=== PATIENT | female | born 1950 | race Caucasian/White ===

== ENCOUNTER 2021-07-12 01:17 | Day surgery (SDC) | payer MEDICARE, SELFPAY ==
[2021-07-04 08:54] VITALS: BMI 33.3
[2021-07-12 07:39] VITALS: BP 160/84; PULSE 74; RESP 20; TEMP 36.1; O2SAT 100; BMI 32.7
--- NOTE | 2021-07-12 07:49 | WPDANESEPPF ---
Anes - Initial Pre Proc Eval Procedure: Operation Date: 07/12/21 08:30 Proposed Procedures p Screening Colonoscopy - Ryan Barreto MD Date/Time: 07/12/21 07:49 Surgeon: Ryan Barreto MD Pre Op Diagnosis: neoplasm screening Patient Data Age: 71 Gender: F Height: 1.65 m Weight: 89.3 kg Last Vital Signs Temp 36.1 C L 07/12/21 07:39 Pulse 74 07/12/21 07:39 Resp 20 07/12/21 07:39 BP 160/84 H 07/12/21 07:39 Pulse Ox 100 07/12/21 07:39 Allergies Allergy/AdvReac Type Severity Reaction Status Date / Time No Known Allergies Verified 07/12/21 07:38 Home Medications Medication Instructions Recorded Confirmed Type raloxifene 60 mg tablet 60 mg PO DAILY 07/18/20 07/04/21 History levothyroxine 88 mcg tablet 88 mcg PO DAILY #90 tablet 02/28/21 07/04/21 Rx amlodipine 2.5 mg tablet 2.5 mg PO DAILY #30 tablet 05/28/21 07/04/21 Rx losartan 100 mg tablet 100 mg PO DAILY #90 tablet 06/18/21 07/04/21 Rx Patient hx anesthesia problems: none Family hx anesthesia problems: none PMFSH Past Medical History Medical History (Updated 07/12/21 @ 07:49 by Gareth Hankins MD) Obesity Family History Family History Mother Patient's mother is in good health Father Patient's father is Social History Social History Social History: Smoking status: Never smoker Second hand tobacco smoke exposure: No Alcohol intake: current Alcohol use details: occasionally Substance use: never Substance use type: does not use Living arrangements: with family Gender identity (if verbalized by the patient): Female Sexual Orientation (if Verbalized by the Patient): Straight or Heterosexual Anes - Eval Final PreProcedure Day of Procedure 07/12/21 07:49 Patient weight: obese Heart: regular rate and rhythm Lungs: clear to auscultation Airway: Mallampati scale class II Neurological: alert and oriented Last oral intake: >/= 8 hours ASA classification: III Emergent: no Anesthetic plan: proceed Anesthesia type and monitoring: general GIVS and standard monitoring Informed Consent: The patient's anesthetic plan and its attendant risks and benefits were discussed with the patient/family/POA. Questions were solicited and answers provided to the satisfaction of the patient/family/POA.
[2021-07-12] MEDS: LACTATED RINGERS 1,000 ML 150 ML IV CONT (07:58)
--- NOTE | 2021-07-12 08:19 | WPDGICN ---
Assessment and Plan Assessment and plan (1) Encounter for screening colonoscopy: Code(s): Z12.11 - Encounter for screening for malignant neoplasm of colon Status: Acute Assessment and Plan: Patient presents for neoplasia screening colonoscopy. Further recommendations will be given after endoscopy. GI Consult Note Consult date/time: 07/12/21 08:19 HPI: Vicky Spears is a 71 year old female Presents for colonoscopy. Patient desires neoplasia screening. Her patient reports that her current weight appetite bowel movements normal. She denies any blood in her stools. She has no abdominal pain. Her last colonoscopy was in 2009. Review of Systems Review of Systems: All systems reviewed & are unremarkable except as noted in HPI and below PMFSH Past Medical History Medical History (Updated 07/12/21 @ 08:21 by Ryan Barreto MD) Obesity Family History Family History Mother Patient's mother is in good health Father Patient's father is Social History Social History Social History: Smoking status: Never smoker Second hand tobacco smoke exposure: No Alcohol intake: current Alcohol use details: occasionally Substance use: never Substance use type: does not use Living arrangements: with family Gender identity (if verbalized by the patient): Female Sexual Orientation (if Verbalized by the Patient): Straight or Heterosexual Meds Home Medications and Allergies Home Medications Medication Instructions Recorded Confirmed Type raloxifene 60 mg tablet 60 mg PO DAILY 07/18/20 07/04/21 History levothyroxine 88 mcg tablet 88 mcg PO DAILY #90 tablet 02/28/21 07/04/21 Rx amlodipine 2.5 mg tablet 2.5 mg PO DAILY #30 tablet 05/28/21 07/04/21 Rx losartan 100 mg tablet 100 mg PO DAILY #90 tablet 06/18/21 07/04/21 Rx Allergies Allergy/AdvReac Type Severity Reaction Status Date / Time No Known Allergies Verified 07/12/21 07:38 Vital Signs Vital Signs - 24 hr 07/12/21 07:39 Temperature 97 F L Pulse Rate 74 Respiratory Rate 20 Blood Pressure 160/84 H Pulse Oximetry 100 Exam Narrative: Physical exam reveals patient to be alert. Vital signs stable. HEENT exam is unremarkable. Patient is anicteric. Lungs are clear to auscultation and percussion. Heart is without murmur or extra sounds. Abdominal exam bowel sounds are present soft nontender with no organomegaly. Digital external rectal exam is normal.
[2021-07-12 08:53] VITALS: BP 121/72; PULSE 60; RESP 15; O2SAT 97
[2021-07-12 09:03] VITALS: BP 136/77; PULSE 56; RESP 16; O2SAT 99
[2021-07-12 09:13] VITALS: BP 147/89; PULSE 61; RESP 14; O2SAT 100
== END 2021-07-12 09:43 | disposition home or self-care (01) ==
PROVIDERS: PCP Family Medicine; Visit Provider Internal Medicine Gastroenterology
PROC: 0DJD8ZZ Inspection of Lower Intestinal Tract, Via Natural or Artificial Opening Endoscopic (ICD-10-PCS; CPT 45378; principal; 2021-07-12 08:30)
DX: Z12.11 Encounter for screening for malignant neoplasm of colon (principal); E66.9 Obesity, unspecified; K64.8 Other hemorrhoids; K57.30 Diverticulosis of large intestine without perforation or abscess without bleeding
CPT/HCPCS: G0121; J2704; J7120

== ENCOUNTER 2022-02-20 15:40 | Outpatient (CLI) | payer MEDICARE, SELFPAY ==
--- NOTE | ~2022-02-20 | DEXA_ITS ---
Bone Density Report Name: JOSSELIN DOS SANTOS Age: 71 Sex: Female Ethnicity: White Date of : 1950 Indication: postmenopausal; screening for osteoporosis; height loss; Referring Provider: DERIK AGUILERA Study: Bone densitometry was performed. Exam Date: February 20, 2022 Accession number: [id number] Bone Density: Region BMD T-score Z-score Classification AP Spine(L1-L4) 0.891 -1.4 0.7 Osteopenia Femoral Neck (Left) 0.792 -0.5 1.3 Normal Total Hip (Left) 0.915 -0.2 1.3 Normal Femoral Neck (Right) 0.693 -1.4 0.4 Osteopenia Total Hip (Right) 0.857 -0.7 0.9 Normal Total Hip Mean 0.886 -0.5 1.1 Normal World Health Organization criteria for BMD impression classify patients as: Normal (T-score at or above -1.0), Osteopenia (T-score between -1.0 and -2.5), or Osteoporosis (T-score at or below -2.5). 10-year Fracture Risk(1): Major Osteoporotic Fracture 9.2% Hip Fracture 1.3% Reported Risk Factors: [place] (), Neck BMD=0.693, BMI=34.8 (1) FRAX(R) Version 3.08. Fracture probability calculated for an untreated patient. Fracture probability may be lower if the patient has received treatment. Previous Exams: Region Exam Age BMD T-score BMD Change BMD Change Date g/cm2 vs Baseline vs Previous AP Spine (L1-L4) 02/20/2022 71 0.891 -1.4 -0.158 (-15.0% -0.080 (-8.2%) 09/12/2019 69 0.971 -0.7 -0.078 (-7.4%) 0.046 (5.0%)# 10/09/2016 66 0.925 -1.1 -0.124 (-11.8% -0.124 (-11.8% 05/03/2013 63 1.049 0.0 Total Hip(Left) 02/20/2022 71 0.915 -0.2 -0.203 (-18.2% -0.049 (-5.1%) 09/12/2019 69 0.964 0.2 -0.154 (-13.8% -0.036 (-3.6%) 10/09/2016 66 1.000 0.5 -0.118 (-10.6% -0.118 (-10.6% 05/03/2013 63 1.118 1.4 Total Hip(Right) 02/20/2022 71 0.857 -0.7 -0.201 (-19.0% -0.066 (-7.1%) 09/12/2019 69 0.923 -0.2 -0.135 (-12.7% -0.025 (-2.6%) 10/09/2016 66 0.948 0.0 -0.110 (-10.4% -0.110 (-10.4% 05/03/2013 63 1.058 1.0 *Denotes significance at 95% confidence level, LSC for AP Spine = 0.022 g/cm2, LSC for Total Hip = 0.027 g/cm2 # Denotes dissimilar scan types or analysis methods Clinical Information Provided by Patient: Has used the following medications: Vitamin D Patient maximum height was 65 Menopause Age: 56 No regular weight bearing exercise Onset of menses at age 14 Number of children 3 Impression: The patient has low bone mass, based on the Total
== END 2022-02-20 15:41 | disposition home or self-care (01) ==
LOC: ANHIMG 15:41
PROVIDERS: PCP Family Medicine; Visit Provider Obstetrics & Gynecology Gynecology
DX: Z78.0 Asymptomatic menopausal state (principal); M85.88 Other specified disorders of bone density and structure, other site; M85.851 Other specified disorders of bone density and structure, right thigh
CPT/HCPCS: 77080

== ENCOUNTER 2022-08-18 18:49 | Emergency (ER) | payer MEDICARE, SELFPAY ==
[2022-08-18] VITALS (21 sets, daily range): BP systolic 128–161; BP diastolic 62–118; PULSE 78–88; RESP 14–20; TEMP 36.2; O2SAT 84–100
--- NOTE | ~2022-08-18 | XR_ITS ---
EXAM: XR shoulder LT min 2V DATE: 08/18/2022 21:36 HISTORY: POST REDUCTION . COMPARISON: Same date at 7:16 PM. FINDINGS/IMPRESSION: Interval reduction of the left shoulder. Superior head migration as can be seen with rotator cuff tear. Reviewed, dictated and finalized at location K.
--- NOTE | ~2022-08-18 | XR_ITS ---
EXAM: XR shoulder LT min 2V DATE: 08/18/2022 19:19 HISTORY: FALL DOWN STEPS . COMPARISON: None available. FINDINGS: Normal mineralization. Anterior and slightly inferior dislocation of the left humeral head . No fracture.. No lytic or blastic lesion. Moderate AC joint hypertrophy. No erosion or periosteal c hange. Soft tissues within normal limits. IMPRESSION: Anterior left glenohumeral dislocation. Reviewed, dictated and finalized at location K.
--- NOTE | 2022-08-18 19:49 | ED.FALL ---
HPI - Fall General Chief Complaint: Fall Stated Complaint: FALL-SHOULDER INJURY Time Seen by Provider: 08/18/22 19:04 History of Present Illness HPI Narrative: 72-year-old male presents the emergency room for evaluation of left shoulder pain. Patient states that she was walking upstairs, when she tripped and fell landing directly on her left shoulder. Patient states following the injury she was unable to move her shoulder. Denies any other injuries. Related Data Home Medications Medication Instructions Recorded Confirmed raloxifene 60 mg tablet (Evista) 60 mg PO DAILY 07/18/20 07/31/22 Allergies Allergy/AdvReac Type Severity Reaction Status Date / Time No Known Allergies Allergy Unverified 08/18/22 19:05 Review of Systems Review of Systems: CONSTITUTIONAL: Denies fever, chills, or sweats. EYES: Denies visual changes, redness, or discharge. ENT: Denies rhinorrhea, congestion, sore throat, or otalgia. CARDIOVASCULAR: Denies chest pain, palpitations, or edema. RESPIRATORY: Denies cough or dyspnea. GASTROINTESTINAL: Denies abdominal pain, nausea, vomiting, or diarrhea. GENITOURINARY: Denies dysuria or hematuria. SKIN: Denies rash or itching. MUSCULOSKELETAL: Reports left shoulder pain NEUROLOGIC: Denies headache, numbness, dizziness, or weakness. PSYCHIATRIC: Denies anxiety or depression. PMFSH Past Medical History Medical History Obesity Family History Family History Mother Patient's mother is in good health Father Patient's father is Social History Social History Social History: Smoking status: Never smoker Second hand tobacco smoke exposure: No Alcohol intake: current Alcohol use details: occasionally Substance use: never Substance use type: does not use Gender identity (if verbalized by the patient): Female Sexual Orientation (if Verbalized by the Patient): Straight or Heterosexual Spiritual care concerns: No Exam Narrative: GENERAL: Well-appearing, well-nourished, no physical limitations, and in no acute distress. HEAD: Normocephalic, atraumatic. EYES: Conjunctivae normal, PERRLA and EOMI. CHEST: Clear to auscultation. No respiratory distress. No wheezes rales or rhonchi. No tenderness. HEART: Regular rate and rhythm. No murmur heard. Normal peripheral pulses. EXTREMITIES: lt shoulder: +TTP to anterior aspect, no obvious bony abnormality, neurovascular is intact distally, unable to assess range of motion due to pain. SKIN: Warm, dry, no rash. No noted wounds NEURO: No focal deficits. Alert and oriented x3. MAEW. CN's II-XI intact bilaterally, normal gait PSYCH: Cooperative. Normal mood and affect. Course Course Emergency Course: 2129: Patient placed on monitoring manager and CO [address] Patient will this prepared for conscious sedation. Dr. Wood at the bedside to etomidate. Shoulder dislocation was successfully reduced and repeat films were obtained. Shoulder immobilizer was applied to patient. Vital Signs Vital signs: Vital Signs Temperature 36.2 C L 08/18/22 18:50 Pulse Rate 78 08/18/22 18:50 Respiratory Rate 18 08/18/22 18:50 Blood Pressure 142/118 H 08/18/22 18:50 Pulse Oximetry 100 08/18/22 18:50 Temperature 36.2 C L 08/18/22 18:50 Pulse Rate 78 08/18/22 18:50 Respiratory Rate 18 08/18/22 18:50 Blood Pressure 142/118 H 08/18/22 18:50 Pulse Oximetry 100 08/18/22 18:50 Discharge Plan Discharge Clinical Impression: Anterior dislocation of left shoulder Patient Disposition: Home, Self-Care Condition: Stable Instructions: Antibiotic Form, Shoulder Dislocation (ED), Closed Reduction (ED), Shoulder Immobilizer (ED) Prescriptions: New hydrocodone-acetaminophen 5-325 mg tablet 1 tablet PO Q8H PRN (Reason: pain) Qty: 20
[2022-08-18] MEDS: HYDROmorphone HCL INJ (*CRX) 1 MG/ML SYR IV PUSH (20:13)
[2022-08-18] MEDS: ONDANSETRON INJ 4 MG/2 ML VIAL IV PUSH (20:13)
[2022-08-18] MEDS: SODIUM CHLORIDE 0.9% IV 1,000 ML 999 ML (21:15)
[2022-08-18] MEDS: ETOMIDATE 20 MG/10 ML AMPUL 45 MG IV PUSH (21:20)
== END 2022-08-18 23:20 | disposition home or self-care (01) ==
PROVIDERS: Emergency Provider Nurse Practitioner Family; PCP Family Medicine
DX: S43.015A Anterior dislocation of left humerus, initial encounter (principal); E66.9 Obesity, unspecified; Z68.34 Body mass index [BMI] 34.0-34.9, adult; W10.9XXA Fall (on) (from) unspecified stairs and steps, initial encounter
CPT/HCPCS: 23650; 73030; 96374; 96375; 99285; J1170; J2405; J7030

== ENCOUNTER 2023-03-08 09:59 | Emergency (ER) | payer MEDICARE, SELFPAY ==
[2023-03-08] VITALS (27 sets, daily range): BP systolic 120–167; BP diastolic 61–90; PULSE 69–81; RESP 12–20; TEMP 36.8; O2SAT 95–100
--- NOTE | ~2023-03-08 | XR_ITS ---
EXAMINATION: XR chest 2V DATE: 03/08/2023 10:31 INDICATION: Chest tightness. TECHNIQUE: Frontal and lateral views of the chest were obtained. COMPARISON: Chest 2 views 05/21/2018 FINDINGS: Calcified left lung nodules and calcified left hilar lymph nodes are consistent with old gr anulomatous disease. No pleural effusion or pneumothorax. The heart size is normal. IMPRESSION: 1. No acute cardiopulmonary disease. Reviewed, dictated and finalized at location A.
--- NOTE | 2023-03-08 10:08 | ECG_ITS ---
Measurements Intervals [place] Rate: 73 P: 13 [place]: 138 QRS: 33 QRSD: 81 T: 22 QT: 405 QTc: 448 Interpretive Statements SINUS RHYTHM BASELINE ARTIFACT- I, II, III, AVR, AVL, AVF, V3 NORMAL ECG NO PREVIOUS ECG AVAILABLE FOR COMPARISON Electronically Signed On 03-08-2023 12:55:57 CDT by Evan Rodriguez D.O.
[2023-03-08 10:19] LABS: Basophils Absolute Auto 0.1 K/mm3 (0.0-0.1); Basophils Percent Auto 0.7 % (0.2-1.2); Eosinophils Absolute Auto 0.2 K/mm3 (0-0.3); Eosinophils Percent Auto 1.6 % (0-4.4); Hematocrit 42.3 % (37.0-47.0); Hemoglobin 13.9 g/dL (12.0-15.0); Immature Granulocyte Absolute 0.04 K/mm3 (0.00-0.031); Immature Granulocyte Percent A 0.3 % (0-0.5); Lymphocytes Absolute Auto 2.62 K/mm3 (0.9-3.2); Lymphocytes Percent Auto 21.3 % (18.3-44.2); Mean Corpuscular HGB Conc 32.9 g/dl (32-36); Mean Corpuscular Hemoglobin 30.5 pg (26-34); Mean Platelet Volume 11.6 fl (7.4-10.4); Monocytes Absolute Auto 0.9 K/mm3 (0.1-0.6); Neutrophils Absolute Auto 8.5 K/mm3 (1.3-6.7); Neutrophils Percent Auto 69.1 % (45.5-73.1); Platelet Count Result 242 k/mm3 (150-375); Red Blood Count 4.55 M/mm3 (4.2-5.4); Red Cell Distribution Width 14.6 % (11.5-14.5); White Blood Count 12.3 K/mm3 (4.5-10.0)
[2023-03-08] MEDS: NITROGLYCERIN SL 0.4 MG TABLET SUBLINGUAL (10:19)
[2023-03-08 10:29] LABS: Prothrombin Time 13.1 Seconds (11.1-14.7)
[2023-03-08 10:30] LABS: Partial Thromboplastin Time 30.3 SECONDS (22.3-36.8)
[2023-03-08 10:54] LABS: Alanine Aminotransferase 29 U/L (6-35); Albumin Level 4.6 g/dL (3.5-5.1); Alkaline Phosphatase 102 U/L (38-126); Anion Gap 4 mmol/L (8-16); Aspartate Amino Transferase 35 U/L (14-36); Bilirubin,Total 0.6 mg/dL (0.2-1.3); Blood Urea Nitrogen 15 mg/dL (7-17); Calcium 9.2 mg/dL (8.4-10.2); Carbon Dioxide 29 mmol/L (22-30); Chloride 104 mmol/L (98-107); Estimated CRCL calculation 94 ml/min; Estimated Glomerular Filt Rate > 60; Glucose 115 mg/dL (65-110); Potassium 4.8 mmol/L (3.4-5.0); Sodium 137 mmol/L (137-145)
[2023-03-08 11:04] LABS: Troponin I < 0.012 ng/mL (0.000-0.034)
--- NOTE | 2023-03-08 12:23 | ED.CHESTPAIN ---
HPI - Chest Pain General Chief Complaint: Chest Pain Stated Complaint: chest tight ness Time Seen by Provider: 03/08/23 10:03 History of Present Illness HPI narrative: Patient is a 73-year-old female who presents to the ER with chest discomfort. Aching depressions in her chest moving into her neck. Began with me. Associate with some loose stools and nausea this morning. No history of heartburn but was concerned she might have heartburn. Denies fevers or chills or sweats. No change with exertion. No history of PR. Chart review shows a normal exercise stress test from 01/2022. Patient tried taking some Zantac but she vomited medication. Related Data Home Medications Medication Instructions Recorded Confirmed raloxifene 60 mg tablet (Evista) 60 mg PO DAILY 07/18/20 01/22/23 meloxicam 15 mg tablet 15 mg PO DAILY 01/22/23 01/22/23 Adult Aspirin EC Low Strength 81 mg BYMOUTH DAILY 03/08/23 03/08/23 Allergies Allergy/AdvReac Type Severity Reaction Status Date / Time No Known Allergies Allergy Verified 03/08/23 10:09 Review of Systems Review of Systems: All systems reviewed & are unremarkable except as noted in HPI and below Constitutional: Constitutional: Denies chills, Denies fatigue and Denies fever(s) ENT: Denies nasal congestion and Denies sore throat Cardiovascular: Cardiovascular: Reports chest pain and Denies radiating jaw, neck or arm pain Respiratory: Respiratory: Denies cough and Denies dyspnea Gastrointestinal: Gastrointestinal: Denies abdominal pain, Reports diarrhea, Reports nausea and Reports vomiting Genitourinary: Genitourinary: Denies nocturia and Denies dysuria [facility] Past Medical History Medical History (Updated 03/08/23 @ 14:29 by Bert Crawford MD) Essential (primary) hypertension HLD (hyperlipidemia) Hypothyroidism, unspecified Obesity Family History Family History Mother Patient's mother is in good health Father Patient's father is Social History Social History Social History: Smoking status: Never smoker Second hand tobacco smoke exposure: No Alcohol intake: current Alcohol use details: occasionally Substance use: never Substance use type: does not use Living arrangements: with family Occupation/Education: retired Gender identity (if verbalized by the patient): Female Sexual Orientation (if Verbalized by the Patient): Straight or Heterosexual Spiritual care concerns: No Exam Narrative: GENERAL: Well-appearing, well-nourished, and in no acute distress. HEAD: Normocephalic, atraumatic. EYES: PERRL and EOMI. ENT: Mucous membranes moist. CHEST: Clear to auscultation. No respiratory distress. HEART: Regular rate and rhythm. Normal peripheral pulses. ABDOMEN: Soft, nontender, nondistended. EXTREMITIES: Normal range of motion. No edema. SKIN: Warm, dry, no rash. NEURO: Alert and oriented x3. PSYCH: Normal mood and affect. Course Course Emergency Course: Troponin negative x2. Normal EKG. Patient chest pain-free. Normal stress test last year. [place] appropriate for outpatient follow-up with PCP. Discussed return precautions and patient verbalized understanding. Vital Signs Vital signs: Vital Signs Temperature 98.2 F 03/08/23 10:06 Pulse Rate 81 03/08/23 10:06 Respiratory Rate 18 03/08/23 10:06 Blood Pressure 167/90 H 03/08/23 10:06 Pulse Oximetry 99 03/08/23 10:06 Oxygen Delivery Room Air 03/08/23 10:06 Temperature 98.2 F 03/08/23 10:06 Pulse Rate 73 03/08/23 14:02 Respiratory Rate 17 03/08/23 14:02 Blood Pressure 150/68 H 03/08/23 13:31 Pulse Oximetry 97 03/08/23 14:02 Oxygen Delivery Room Air 03/08/23 10:09 MDM - Chest Pain Lab Data 03/08/23 10:12 03/08/23 10:12 Labs: Lab Results 03/08/23 03/08/23 Range/Units
[2023-03-08 14:05] LABS: Troponin I < 0.012 ng/mL (0.000-0.034)
== END 2023-03-08 14:45 | disposition home or self-care (01) ==
PROVIDERS: Emergency Provider Emergency Medicine; PCP Family Medicine
DX: R07.89 Other chest pain (principal); I10 Essential (primary) hypertension; E78.5 Hyperlipidemia, unspecified; E03.9 Hypothyroidism, unspecified; E66.9 Obesity, unspecified; Z68.35 Body mass index [BMI] 35.0-35.9, adult
CPT/HCPCS: 36415; 71046; 80053; 84484; 85025; 85610; 85730; 93005; 99284; A9270

== ENCOUNTER 2024-06-06 11:51 | Outpatient (CLI) | payer MEDICARE, SELFPAY ==
--- NOTE | ~2024-06-06 | DEXA_ITS ---
Bone Density Report Name: JOSSELIN DOS SANTOS Age: 74 Sex: Female Ethnicity: White Date of : 1950 Indication: hyperparathyroidism; height loss; Referring Provider: DERIK AGUILERA Study: Bone densitometry was performed. Exam Date: June 06, 2024 Accession number: [id number] Bone Density: Region BMD T-score Z-score Classification AP Spine(L1-L4) 0.981 -0.6 1.7 Normal Femoral Neck (Left) 0.714 -1.2 0.8 Osteopenia Total Hip (Left) 0.883 -0.5 1.2 Normal Femoral Neck (Right) 0.680 -1.5 0.5 Osteopenia Total Hip (Right) 0.820 -1.0 0.7 Normal Total Hip Mean 0.851 -0.8 1.0 Normal World Health Organization criteria for BMD impression classify patients as: Normal (T-score at or above -1.0), Osteopenia (T-score between -1.0 and -2.5), or Osteoporosis (T-score at or below -2.5). 10-year Fracture Risk(1): Major Osteoporotic Fracture 10% Hip Fracture 1.7% Reported Risk Factors: [place] (), Neck BMD=0.680, BMI=35.7 (1) FRAX(R) Version 3.08. Fracture probability calculated for an untreated patient. Fracture probability may be lower if the patient has received treatment. Clinical Information Provided by Patient: Has used the following medications: Vitamin D Has the following medical conditions: Hyperparathyroidism Patient maximum height was 65.0 Menopause Age: 56 No regular weight bearing exercise Drinks caffeinated beverages Onset of menses at age 14 Number of children 3 Impression: The patient has low bone mass, based on the Right Femoral Neck T-score. The patient has an estimated ten-year risk of hip fracture of 1.7% and an estimated ten-year risk of major fracture of 10%, based on the WHO FRAX algorithm. Discussion: BONE DENSITY IS LOW AT ONE OR MORE SKELETAL SITES. This patient's lowest T-score is low at one or more skeletal sites. It meets the World Health Organization's (WHO) criteria for ?low bone mass? (T-score between -1.0 and -2.5). The patient's 10-year risk of fracture as calculated by FRAX is less than the threshold where pharmacological therapy is recommended by the National Osteoporosis Foundation (NOF). However, all treatment decisions require clinical judgment and consideration of individual patient factors, including patient preferences, comorbidities, previous drug use, risk factors not captured in the FRAX model (e.g., frailty, falls, vitamin D deficiency, increased bone turnover, interval significant decline in bone density) and possible under or overestimation of fracture risk by FRAX. The patient should follow a healthful lifestyle (good nutrition with adequate calcium and vitamin D, and appropriate weight-bearing exercise). Follow-Up: Consider repeating this study in 2 to 3 years to reassess this patient's status, or sooner if there is some new clinical
== END 2024-06-06 11:52 | disposition home or self-care (01) ==
LOC: ANHIMG 11:52
PROVIDERS: PCP Family Medicine; Visit Provider Obstetrics & Gynecology Gynecology
DX: M85.89 Other specified disorders of bone density and structure, multiple sites (principal); Z78.0 Asymptomatic menopausal state
CPT/HCPCS: 77080